=== PATIENT | female | born 1970 | race Caucasian/White ===

== ENCOUNTER → 2017-07-02 | Outpatient (CLI) | payer BC ==
--- NOTE | 2017-07-03 08:45 | US ---
Abdominal ultrasound Indication: Right lower quadrant pain Comparison: None Technique: Sonographic images of the abdomen were obtained per protocol. Findings: The liver is heterogeneously hyperechoic in echotexture, but does not appear overtly cirrho tic. There is no cholelithiasis, gallbladder distention, wall thickening, or pericholecystic fluid. N o biliary dilation is observed; the common duct measured 4 mm in diameter. The pancreas and proximal aorta were obscured. The visualized spleen, kidneys, and mid and distal aorta were within normal limi ts. Impression: Heterogeneous liver echotexture, suggesting steatosis or chronic hepatic parenchymal disease. Otherwise unremarkable abdominal ultrasound as visualized. The pancreas and proximal aorta were obscu red. Reported By:
== END ==
LOC: RAD 09:10
PROVIDERS: ATTEND Internal Medicine Gastroenterology
DX: R10.31 Right lower quadrant pain (principal)
CPT/HCPCS: 76700

== ENCOUNTER → 2017-07-24 | Outpatient (CLI) | payer BC ==
[~2017-07-24] MED LIST: NS 25 ML IV 25 ML IV ONE
--- NOTE | 2017-07-27 09:58 | CT ---
CT abdomen and pelvis with contrast Indication: Right lower quadrant pain with nausea intermittently for 1 month. History of previous margarita endectomy, hysterectomy. Comparison: None Technique: CT images of the abdomen and pelvis were obtained after IV and oral contrast administratio n. Automatic exposure control was utilized. Findings: No aggressive osseous lesions. The lung bases are clear. There is moderate hiatal hernia of the stomach, which is otherwise unremarkable. The liver is steatot ic, but normal in configuration, without focal lesion. The gallbladder, spleen, duodenum, pancreas, a drenals, and right kidney are unremarkable. There are 2 left renal collecting system stones, with the larger measuring 6 mm in the upper pole (axial image 37). There is no hydronephrosis. No ureteral st ones are identified. No bowel thickening or dilatation of the lower GI tract identified. Previous margarita endectomy and hysterectomy noted. No evidence for pelvic mass. The urinary bladder and rectum are unr emarkable. There is a small fat containing umbilical hernia. No free fluid or adenopathy identified Impression: 1. No definite etiology for patient's symptoms identified. 2. Nonobstructing left nephrolithiasis 3. Moderate hiatal hernia Reported By:
== END ==
LOC: RAD 09:04
PROVIDERS: ATTEND Internal Medicine Gastroenterology
DX: R10.31 Right lower quadrant pain (principal); R11.0 Nausea
CPT/HCPCS: 74177; A4222